=== PATIENT | male | born 1965 | race Caucasian/White ===

== ENCOUNTER 2025-08-18 09:13 | Outpatient (CLI) | payer OTHER, SELFPAY | END 2025-08-18 09:14 | disposition home or self-care (01) | LOC: OP CLINIC 09:19 | PROVIDERS: PCP Family Medicine; Visit Provider Surgery | DX: Z53.9 Procedure and treatment not carried out, unspecified reason (principal); Z86.0100 Personal history of colon polyps, unspecified ==